=== PATIENT | female | born 1955 | race Caucasian/White ===

== ENCOUNTER 2017-05-27 17:07 | Emergency (ER) | payer OTHER ==
[~2017-05-27] VITALS: Ht 165.1 cm; Wt 108.4 kg
[2017-05-27] MEDS ORDERED: NORVASC10 MG PO (17:17)
[2017-05-27] MEDS ORDERED: HUMALOG100 UNIT/2 SUBQ (17:17)
[2017-05-27] MEDS ORDERED: HYDRALAZINE 2525 MG PO (17:17)
[2017-05-27] MEDS ORDERED: LISINOPRIL40 MG PO (17:17)
[2017-05-27] MEDS ORDERED: LOPRESSOR100 M1 PO (17:17)
[2017-05-27] MEDS ORDERED: METFORMIN HCL500 MG PO (17:18)
[2017-05-27] MEDS ORDERED: SYNTHROID175 MCG PO (17:18)
[2017-05-27] MEDS ORDERED: LANTUS100 UNIT/M SUBQ (17:18)
[2017-05-27] MEDS ORDERED: RANITIDINE 150150 M1 PO (17:18)
[2017-05-27] MEDS ORDERED: PROAIR RESPICL90 MCG INH (17:19)
[2017-05-27] MEDS ORDERED: SKELAXIN 800 M800 M1 PO (17:19)
[2017-05-27] MEDS ORDERED: TOBRAMYCIN SULFA5 ML OPHTHALMIC (17:55)
[2017-05-27 18:07] VITALS: BP 189/96
== END 2017-05-27 18:08 | disposition home or self-care (01) ==
LOC: M.ERS 17:07
DX: T26.31XA Burns of other specified parts of right eye and adnexa, initial encounter (principal); T55.1X1A Toxic effect of detergents, accidental (unintentional), initial encounter; I10 Essential (primary) hypertension; E11.9 Type 2 diabetes mellitus without complications; E03.9 Hypothyroidism, unspecified; J45.909 Unspecified asthma, uncomplicated; Z90.710 Acquired absence of both cervix and uterus; Z98.890 Other specified postprocedural states; Z88.8 Allergy status to other drugs, medicaments and biological substances; Y92.89 Other specified places as the place of occurrence of the external cause

== ENCOUNTER 2020-09-28 10:21 | Emergency (ER) | payer OTHER ==
[~2020-09-28] VITALS: Ht 165.1 cm; Wt 113.4 kg
[~2020-09-28 10:21] MED LIST: HUMALOG100 UNIT/2 SUBQ; HYDRALAZINE 2525 MG PO; LANTUS100 UNIT/M SUBQ; LISINOPRIL40 MG PO; LOPRESSOR100 M1 PO; METFORMIN HCL500 MG PO; NORVASC10 MG PO; PROAIR RESPICL90 MCG INH; RANITIDINE 150150 M1 PO; SKELAXIN 800 M800 M1 PO; SYNTHROID175 MCG PO; TOBRAMYCIN SULFA5 ML OPHTHALMIC
[2020-09-28 10:47] LABS: ABSOLUTE BASOPHILS 0.2 thou/uL (0.0-0.2); ABSOLUTE EOSINOPHILS 0.6 thou/uL (0.0-0.7); ABSOLUTE LYMPHOCYTES 2.1 thou/uL (0.8-5.3); ABSOLUTE MONOCYTES 0.5 thou/uL (0.0-1.2); ABSOLUTE NEUTROPHILS 6.7 thou/uL (1.6-8.1); BASOPHILS 1.5 %; EOSINOPHILS 5.9 %; HEMATOCRIT 43.6 % (37.0-47.0); HEMOGLOBIN 15.2 gm/dL (12.0-15.0); LYMPHOCYTES 21.1 %; MCH 30.7 pg (26.0-34.0); MCHC 34.8 g/dL (28.0-37.0); MCV 88.2 fL (80.0-100.0); MONOCYTES 5.3 %; MPV 7.3 fl. (7.2-11.1); NUCLEATED RBCS 0 /100WBC; PLATELET COUNT* 265 thou/uL (150-400); POLYS 66.2 %; RBC 4.94 mil/uL (4.20-5.00); RDW-CV 14.3 % (10.5-14.5); WBC 10.2 thou/uL (4.0-11.0)
[2020-09-28 10:56] LABS: CALCIUM 9.3 mg/dL (8.5-10.1); CREATININE 1.1 mg/dL (0.6-1.3); POTASSIUM 3.7 mmol/L (3.5-5.1)
[2020-09-28 11:00] LABS: ALBUMIN 3.3 g/dL (3.4-5.0); APTT 26.4 Seconds (25.0-31.3); PROTIME 10.3 Seconds (9.20-11.50); TOTAL BILIRUBIN 0.5 mg/dL (<0.1-1.0); TOTAL PROTEIN 7.5 g/dL (6.4-8.2)
[2020-09-28] MEDS ORDERED: PREDNISONE 20 M20 M1 PO (12:29)
[2020-09-28] MEDS ORDERED: ACYCLOVIR 400400 MG PO (12:29)
[2020-09-28 12:34] VITALS: BP 148/95
--- NOTE | 2020-09-28 16:12 | EKG ---
[place] [address] ELECTROCARDIOGRAM REPORT Name: RICARDORUTH Subha Room: [facility]#: [id number] Admission: 09/28/20 Attend Phys: Discharge: 09/28/20 Date of : 57 Date of Service: 09/28/20 1026 Report #: [id number] THIS REPORT FOR: //name// [facility] ED Test Date: 2020-09-28 Test Time: 10:26:51 Pat Name: RUTH SILVA Department: Room: Gender: F [employer]: : 1955 Requested By: Antoni Byrne Order Number: [id number] MD: Nikolas Sams Measurements Intervals [place] Rate: 81 P: 28 [place]: 146 QRS: 12 QRSD: 102 T: 50 QT: 334 QTc: 388 Interpretive Statements Sinus rhythm Borderline T wave abnormalities No previous ECG available for comparison Electronically Signed On 09-28-2020 16:12:22 CDT by Nikolas Sams [email or web address] <ELECTRONICALLY SIGNED> By: Nikolas Sams MD, [facility] 09/28/20 1612 1026 1026 Nikolas Sams MD, [facility] /EPI
== END 2020-09-28 12:36 | disposition home or self-care (01) ==
LOC: M.ERS 10:21
PROVIDERS: Family Medicine
DX: G51.0 Bell's palsy (principal); Z88.8 Allergy status to other drugs, medicaments and biological substances; I10 Essential (primary) hypertension; E11.9 Type 2 diabetes mellitus without complications; E03.9 Hypothyroidism, unspecified; E89.0 Postprocedural hypothyroidism; Z90.89 Acquired absence of other organs; Z90.710 Acquired absence of both cervix and uterus; Z90.722 Acquired absence of ovaries, bilateral